=== PATIENT | female | born 1960 | race Caucasian/White ===

== ENCOUNTER → 2018-11-17 | Outpatient (CLI) | payer OTHER | LOC: COL.RAD 09:20 | DX: N95.0 Postmenopausal bleeding (principal); N83.8 Other noninflammatory disorders of ovary, fallopian tube and broad ligament; Z79.890 Hormone replacement therapy ==

== ENCOUNTER → 2018-12-03 | Outpatient (CLI) | payer OTHER | LOC: COL.RAD 06:30 | DX: N83.202 Unspecified ovarian cyst, left side (principal); N83.201 Unspecified ovarian cyst, right side; D25.9 Leiomyoma of uterus, unspecified; N83.8 Other noninflammatory disorders of ovary, fallopian tube and broad ligament | CPT/HCPCS: A9585 ==